=== PATIENT | male | born 1950 | race Hispanic/Latino ===

== ENCOUNTER 2017-07-28 13:12 | Emergency (ER) | payer OTHER ==
[2017-07-28 13:26] VITALS: RESP 20; TEMP 98.6
[2017-07-28 13:52] VITALS: BMI 29.6
[2017-07-28] MEDS ORDERED: Lactated Ringer's 1,000 ML IV STA (14:15)
[2017-07-28 14:33] LABS: BASO % 0.2 % (0.0-2.0); EOS # 0.1 K/uL (0.0-0.7); EOS % 0.5 % (0.0-4.0); HEMOGLOBIN 15.4 g/dL (12.0-18.0); LYMPH # 3.1 K/uL (1.0-4.3); LYMPH % 32.5 % (20.0-40.0); MEAN CELL VOLUME 98.1 fL (80.0-94.0); MEAN CORPUSCULAR HEMOGLOBIN 34.4 pg (27.0-31.0); MEAN CORPUSCULAR HGB CONC 35.1 g/dL (33.0-37.0); MEAN PLATELET VOLUME 8.6 fL (7.2-11.7); MONO # 0.7 K/uL (0.0-0.8); MONO % 6.9 % (0.0-10.0); NEUT # 5.8 K/uL (1.8-7.0); NEUT % 59.9 % (50.0-75.0); RBC 4.47 Mil/uL (4.40-5.90); WHITE BLOOD COUNT 9.7 K/uL (4.8-10.8)
[2017-07-28 15:00] LABS: ALB/GLOB RATIO 1.1 (1.0-2.1); ALBUMIN 4.1 g/dL (3.5-5.0); ALT/SGPT 33 U/L (21-72); AST/SGOT 65 U/L (17-59); BLOOD UREA NITROGEN 17 mg/dL (9-20); CALCIUM 8.1 mg/dl (8.6-10.4); GFR AFRICAN-AMERICAN > 60; GFR NON-AFRICAN AMERICAN > 60
[2017-07-28 15:15] LABS: SQUAMOUS EPITHIAL 1 /hpf (0-5); URINE BILIRUBIN NEGATIVE (NEGATIVE); URINE BLOOD NEGATIVE (NEGATIVE); URINE CLARITY Clear (Clear); URINE COLOR Yellow (YELLOW); URINE GLUCOSE (UA) NORMAL (Normal); URINE LEUKOCYTE ESTERASE NEG Leu/uL (Negative); URINE NITRATE NEGATIVE (NEGATIVE); URINE PROTEIN NEGATIVE (NEGATIVE); URINE UROBILINOGEN NORMAL mg/dL (0.2-1.0)
[2017-07-28 15:26] LABS: BARBITURATES, UR NEGATIVE (NEGATIVE); OPIATES, UR NEGATIVE (NEGATIVE); PHENCYCLIDINE, UR NEGATIVE (NEGATIVE)
--- NOTE | 2017-07-28 16:04 | C.PDOC ---
History Of Present Illness Patient is a 66 y/o male who presents to the ED BIB EMS for alcohol abuse. Patient reports drinking alcohol and taking Xanax daily, admitting to both today. Patient notes being "hooked" on Xanax for many years. Denies any physical complaints. Chief Complaint (Nursing): Substance Abuse History Per: Patient History/Exam Limitations: no limitations Modifying Factor(s): Alcohol Recent travel outside of the [place]: No Past Medical History Reviewed: Historical Data, Nursing Documentation, Vital Signs Vital Signs: Last Vital Signs Temp 98.6 F 07/28/17 16:37 Pulse 74 07/28/17 16:37 Resp 20 07/28/17 16:37 BP 115/64 07/28/17 16:37 Pulse Ox 98 07/28/17 16:37 - Medical History PMH: HTN Surgical History: No Surg Hx Family History: States: No Known Family Hx - Social History Hx Alcohol Use: Yes Hx Substance Use: Yes - Immunization History Hx Tetanus Toxoid Vaccination: No Hx Influenza Vaccination: No Hx Pneumococcal Vaccination: Yes Review Of Systems Neurological: Positive for: Other ([place] intoxicated) Psych: Negative for: Suicidal ideation Physical Exam - Physical Exam Appears: Well, Non-toxic, No Acute Distress Skin: Normal Color, Warm, Dry Head: Atraumatic, Normacephalic Oral Mucosa: Moist Chest: Symmetrical Cardiovascular: Rhythm Regular, No Murmur Respiratory: Normal Breath Sounds, No Rales, No Rhonchi, No Wheezing Gastrointestinal/Abdominal: Soft, No Tenderness Neurological/Psych: Oriented x3, Normal Speech, Normal Cognition ED Course And Treatment - Laboratory Results Result Diagrams: 07/28/17 14:29 07/28/17 14:29 O2 Sat by Pulse Oximetry: 93 Progress Note: Drug screen ordered. IV fluids administered. Disposition - Disposition Referrals: Marilee Chairez MD [Staff Provider] - Disposition: HOME/ ROUTINE Disposition Time: 15:10 Condition: GOOD Additional Instructions: Thank you for letting us take care of you today. The emergency medical care you received today was directed at your acute symptoms. If you were prescribed any medication, please fill it and take as directed. It may take several days for your symptoms to resolve. Return to the Emergency Department if your symptoms worsen, do not improve, or if you have any other problems. Please contact your doctor or call one of the physicians/clinics you have been referred to that are listed on the Patient Visit Information form that is included in your discharge packet. Bring any paperwork you were given at discharge with you along with any medications you are taking to your follow up visit. Our treatment cannot replace ongoing medical care by a primary care provider (PCP) outside of the emergency department. Thank you for allowing the [facility] team to be part of your care today. Follow up with Dr. Chairez on Sunday for follow up and further management. Instructions: Benzodiazepine Abuse (ED) Forms: [employer] (Italian) - Clinical Impression Clinical Impression: Drug abuse - Scribe Statement The provider has reviewed the documentation as recorded by the Scribe Mercy Brian All medical record entries made by the Scribe were at my direction and personally dictated by me. I have reviewed the chart and agree that the record accurately reflects my personal performance of the history, physical exam, medical decision making, and the department course for this patient. I have also personally directed, reviewed, and agree with the discharge instructions and disposition.
[2017-07-28 16:06] LABS: BENZODIAZEPINES, UR POSITIVE (NEGATIVE)
[2017-07-28] MEDS ORDERED: Potassium Chloride 20 mEq ER Tab PO SCH (16:30)
[2017-07-28] MEDS ORDERED: Potassium Chloride 20 mEq ER Tab PO ONE (16:35)
[2017-07-28 16:37] VITALS: BP 115/64; PULSE 74
[2017-07-28 18:34] VITALS: O2SAT 93
== END 2017-07-28 16:52 | disposition home or self-care (01) ==
LOC: C.ER 13:12
DX: F19.10 Other psychoactive substance abuse, uncomplicated (principal); I10 Essential (primary) hypertension
CPT/HCPCS: 80053; 80320; 80324; 80345; 80346; 80349; 80353; 80358; 80361; 81001; 82948; 83992; 85025; 99285; J7120

== ENCOUNTER 2017-08-08 20:06 | Inpatient (IN) | payer OTHER, MEDICARE ==
[2017-08-08 20:07] VITALS: BMI 29.6
--- NOTE | 2017-08-08 21:40 | C.PDOC ---
History Of Present Illness 66 year old male accompanied by his friend presents to the ED sent by Dr. Chairez for admission for depression and substance abuse. As per Patient's friend he has not been taking care of himself and has been abusing Xanax and alcohol, patient states he has not been eating, not taking care of his medical issues. Patient denies SI/HI, hallucinations, nausea, vomit, diarrhea, fever, chills, weakness, numbness. Time Seen by Provider: 08/08/17 20:58 Chief Complaint (Nursing): Psychiatric Evaluation History Per: Patient, Other (Friend) History/Exam Limitations: no limitations Onset/Duration Of Symptoms: Days Current Symptoms Are (Timing): Still Present Suicide/Self Injury Attempted (Context): None Modifying Factor(s): Alcohol, Other (Xanax) Associated Symptoms: Depression. denies: Suicidal Thoughts, Suicidal Plan Recent travel outside of the [place]: No Additional History Per: Patient, Friend Past Medical History Reviewed: Historical Data, Nursing Documentation, Vital Signs Vital Signs: Last Vital Signs Temp 99.8 F H 08/08/17 20:19 Pulse 108 H 08/08/17 20:19 Resp 22 08/08/17 20:19 BP 148/91 H 08/08/17 20:19 Pulse Ox 96 08/08/17 21:42 - Medical History PMH: HTN Surgical History: No Surg Hx Family History: States: Unknown Family Hx - Social History Hx Alcohol Use: Yes Hx Substance Use: Yes - Immunization History Hx Tetanus Toxoid Vaccination: No Hx Influenza Vaccination: No Hx Pneumococcal Vaccination: Yes Review Of Systems Constitutional: Negative for: Fever, Chills Cardiovascular: Negative for: Chest Pain Respiratory: Negative for: Cough, Shortness of Breath Gastrointestinal: Negative for: Nausea, Vomiting, Abdominal Pain Genitourinary: Negative for: Dysuria, Hematuria Skin: Negative for: Rash Neurological: Negative for: Weakness, Numbness, Headache, Dizziness Psych: Negative for: Depression, Suicidal ideation Physical Exam - Physical Exam Appears: Non-toxic, No Acute Distress Skin: Normal Color, Warm, Dry Head: Atraumatic, Normacephalic Nose: No Discharge, No Deformity Oral Mucosa: Moist Neck: Normal ROM, Supple Chest: Symmetrical Cardiovascular: Rhythm Regular, No Murmur Respiratory: Normal Breath Sounds, No Rales, No Rhonchi, No Wheezing Gastrointestinal/Abdominal: Soft, No Tenderness, No Guarding, No Rebound Extremity: Normal ROM, No Pedal Edema, No Calf Tenderness, No Deformity, No Swelling Neurological/Psych: Oriented x3, Normal Speech, Normal Cognition Gait: Steady ED Course And Treatment - Laboratory Results Result Diagrams: 08/08/17 21:51 08/08/17 21:51 Lab Interpretation: No Acute Changes O2 Sat by Pulse Oximetry: 96 (On RA) Pulse Ox Interpretation: Normal Progress Note: Patient is medically cleared for admission for major depressive disorder and benzodiazepine abuse. Medical Decision Making Medical Decision Making: Plan: * UA * Labs Disposition - Disposition Disposition: HOSPITALIZED Disposition Time: 22:47 Condition: STABLE - POA Present On Arrival: None - Clinical Impression Clinical Impression: Moderate major depression, single episode, Benzodiazepine abuse - Scribe Statement The provider has reviewed the documentation as recorded by the Scribe Beto Stevenson All medical record entries made by the Scribe were at my direction and personally dictated by me. I have reviewed the chart and agree that the record accurately reflects my personal performance of the history, physical exam, medical decision making, and the department course for this patient. I have also personally directed, reviewed, and agree with the discharge instructions and disposition.
[2017-08-08 21:54] LABS: BASO % 0.1 % (0.0-2.0); EOS % 0.4 % (0.0-4.0); HEMOGLOBIN 13.7 g/dL (12.0-18.0); LYMPH # 2.3 K/uL (1.0-4.3); MEAN CORPUSCULAR HEMOGLOBIN 33.8 pg (27.0-31.0); MEAN CORPUSCULAR HGB CONC 34.5 g/dL (33.0-37.0); MEAN PLATELET VOLUME 7.8 fL (7.2-11.7); MONO # 0.8 K/uL (0.0-0.8); MONO % 9.9 % (0.0-10.0); NEUT # 5.3 K/uL (1.8-7.0); NEUT % 62.6 % (50.0-75.0); RBC 4.03 Mil/uL (4.40-5.90); RED CELL DISTRIBUTION WIDTH 12.7 % (11.5-14.5); WHITE BLOOD COUNT 8.5 K/uL (4.8-10.8)
[2017-08-08 22:13] LABS: ALB/GLOB RATIO 1.5 (1.0-2.1); ALT/SGPT 30 U/L (21-72); AST/SGOT 26 U/L (17-59); BLOOD UREA NITROGEN 13 mg/dL (9-20); CALCIUM 8.5 mg/dl (8.6-10.4); GFR AFRICAN-AMERICAN > 60; GFR NON-AFRICAN AMERICAN > 60
[2017-08-08 22:20] LABS: SQUAMOUS EPITHIAL < 1 /hpf (0-5); URINE BILIRUBIN NEGATIVE (NEGATIVE); URINE BLOOD NEGATIVE (NEGATIVE); URINE CLARITY Clear (Clear); URINE COLOR Yellow (YELLOW); URINE GLUCOSE (UA) NORMAL (Normal); URINE LEUKOCYTE ESTERASE NEG Leu/uL (Negative); URINE NITRATE NEGATIVE (NEGATIVE); URINE PROTEIN NEGATIVE (NEGATIVE); URINE UROBILINOGEN NORMAL mg/dL (0.2-1.0)
[2017-08-08 22:34] LABS: BARBITURATES, UR NEGATIVE (NEGATIVE); OPIATES, UR NEGATIVE (NEGATIVE); PHENCYCLIDINE, UR NEGATIVE (NEGATIVE)
[2017-08-08 22:43] LABS: BENZODIAZEPINES, UR POSITIVE (NEGATIVE)
[2017-08-08] MEDS ORDERED: Aluminum Hydroxide/Magnesium Hydroxide Susp (30 mL) PO PRN (22:51)
[2017-08-09 00:03] VITALS: O2SAT 95
[2017-08-09] MEDS ORDERED: Pneumococcal 23-Valent Vaccine IM ONE (02:13)
--- NOTE | 2017-08-09 02:19 | PCM.BM ---
Treatment assets and liabiliti Patient Assests: adapts well, cooperative, self-reliant, ADL independent, good support system, negotiates basic needs Patient Liabilities: dietary restrictions, medical problems - Milieu Protocol Maintain good personal hygiene: daily Encourage regular showers, daily Remind patient to perform daily oral care, daily Assist patient to perform ADL's Maintain personal safety: daily Educate patient to report safety concerns to staff, daily Monitor environment for contraband/sharps Medication safety: Monitor for expected outcome, potential side effects: daily
--- NOTE | 2017-08-09 03:05 | PCM.BM ---
<Justin Santos - Last Filed: 08/09/17 03:03> Treatment Plan Problems - Problems identified on initial assessmt Depression Date Initiated: 08/09/17 Time Initiated: 00:15 Assessment reference: NA Status: Active Treatment assets and liabiliti Patient Assests: adapts well, cooperative, self-reliant, ADL independent, good support system, negotiates basic needs Patient Liabilities: financial problems, substance abuse, medical problems, legal issue - Milieu Protocol Maintain good personal hygiene: daily Encourage regular showers, daily Remind patient to perform daily oral care, daily Assist patient to perform ADL's Maintain personal safety: every shift Educate patient to report safety concerns to staff, every shift Monitor environment for contraband/sharps Medication safety: Monitor for expected outcome, potential side effects: every shift, Assess barriers to learning: every shift, Assess readiness for medication education: every shift <Marilee Chairez - Last Filed: 08/10/17 11:10> - Diagnosis (1) Moderate major depression, single episode Status: Acute Interventions: 08/10/17 11:10 * Assess/adjust medications daily and /or as needed * See patient on an individual basis 7x/week to assess symptoms of depression * Monitor for side effects & effectiveness of medications * (2) Benzodiazepine abuse Status: Acute Interventions: 08/10/17 11:11 * Assess 7x/week regarding severity of withdrawal * Educate regarding risks, benefits, side effects and alternatives of medications * Use Motivational Interviewing for abstinence * Use CBT for relapse prevention * Medication management for withdrawal symptoms * Encourage medication assisted treatment * <Poly Yang - Last Filed: 08/10/17 11:38> Family Contact Family involvement: Family/SO is involved - Goals for Treatment Patient goals for treatment: "I need help." Discharge/Continuing Care - Education Needs Education Needs: Patient Medication, Patient Coping Skills - Discharge Discharge Criteria: Tolerates medication w/o severe side effects, Reduction of target symptoms Discharge to:: Home - Treatment Team Participation Discussed with Family/SO: No Was Patient/Family/SO present at Treatment Team Meeting: Yes
[2017-08-09] MEDS: Multiple Vitamins Tab PO SCH (10:06)
--- NOTE | 2017-08-09 10:23 | PCM.PSYCH ---
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 Patient reports a long history of depression. He reports that he was given Xanax for depression by his psychiatrist. However since past 2 weeks he is abusing increasing amount of Xanax. On he consumed "only 1/2 gallon of rum'. He was taken to the hospital but that he was discharged back to home As per the ED notes, patient reports that, 'he took 12 Xanax 0.5mg yesterday because he was "feeling a little extra sad." When asked if this was a suicide attempt, pt said "no I didn't want to hurt myself, but honestly, if I took one too many pills and I didn't wake up then what the hell, oh well." Pt denies previous suicide attempts in the past. Pt admitted to one psychiatric admission "over 20 years ago in [place], [place] when I was drinking heavily." Pt stated he has been struggling with addiction since his 20's. Pt stated that he used 4- 5 tablets of Xanax 0.5 today by mouth, last use around 4pm. Pt denied active w/ d symptoms, but experiences tremors, and "leg weakness" when w/d. Pt presented as unkempt and older than stated age. Pt behavior's was tense, apathetic, and speech was mumbled. Pt has a history of benzodiazepine related seizures, last episodes were on 07/25/17 when he was brought to [facility] ER and on 07/28/17 when he was brought to [facility] ER. Pt appears to lack insight into the severity of his addiction, and grossly minimizing his symptoms. Pt states he has been to detox "many time, the first time at 24 for alcohol and the last time over 10 years ago." Although pt was engaging throughout the evaluation, he remained guarded and evasive about details of his substance abuse and psychiatric history. Pt was unable to identify the catalyst of his use worsening since 11/2016. Pt has not been eating regularly, and has " no appetite." Pt states he has lost over 40lbs in under 3 years. Pt is not bathing or grooming himself, and his , Akshat has been assisting him in his ADL's. Patient still reports feelings of hopelessness and helplessness. He reports poor sleep and poor appetite. He reports he has no interest in his profession and his shop. He is minimizing his days at work and stays home everyday. However denies any auditory or visual hallucinations or any persecutory delusions. Past medical history HTN, DM Current Medications: Active Medications Generic Name Dose Route Start Last Admin Trade Name Freq PRN Reason Stop Dose Admin Acetaminophen 650 mg 08/08/17 22:49 Tylenol 325mg Tab PO Q6 PRN Fever >100.4 F Al Hydrox/Mg Hydrox/Simethicone 30 ml 08/08/17 22:51 Maalox 30 Ml PO TID PRN Indigestion / Heartburn Clonidine HCl 0.1 mg 08/08/17 22:49 Catapres PO Q4H PRN Symptoms of alcohol withdrawl Folic Acid 1 mg 08/09/17 10:00 08/09/17 10:06 Folic Acid PO 1 mg DAILY FERN Administration Loperamide HCl 2 mg 08/08/17 22:51 Imodium PO Q8 PRN Diarrhea Lorazepam 1 mg 08/08/17 22:49 Ativan PO Q4H PRN Symptoms of alcohol withdrawl Lorazepam 2 mg 08/08/17 23:00 08/09/17 08:25 Ativan PO 08/13/17 22:59 2 mg Q4 FERN Administration Taper Multivitamins 1 tab 08/09/17 10:00 08/09/17 10:06 Hexavitamin PO 1 tab DAILY FERN Administration Ondansetron HCl 4 mg 08/08/17 22:51 Zofran Tab PO Q8 PRN Nausea/Vomiting Sertraline HCl 50 mg 08/09/17 10:00 08/09/17 10:06 Zoloft PO 50 mg DAILY FERN Administration Thiamine HCl 100 mg 08/09/17 10:00 08/09/17 10:06 Vitamin B1 Tab PO 100 mg DAILY FERN Administration Trazodone HCl 50 mg 08/08/17 22:49 08/09/17 01:19 Desyrel PO 50 mg HS PRN Administration Insomnia Past Psychiatric History - Past Psychiatric History Previous Treatment History: Inpatient Pertinent Medical Hx (Current Medical&Sleep Prob, Allergies): Allergies Allergy/AdvReac Type Severity Reaction Status Date / Time No Known Allergies Allergy Verified 07/28/17 13:31 Alprazolam [Xanax] 0.5 mg PO TID 07/28/17 Paroxetine HCl [Paxil] 10 mg PO DAILY 07/28/17 Paroxetine HCl [Paxil] 40 mg PO DAILY 07/28/17 Valsartan [Diovan] 0 mg PO DAILY 07/28/17 Review of Systems - Review of Systems All systems: reviewed and no additional remarkable complaints except - Psychiatric Psychiatric: Anxiety, Behavioral Changes, Hopelessness, Irritability, Suicidal Ideation Mental Status Examination - Personal Presentation Personal Presentation: Looks stated age - Affect Affect: Constricted, Depressed - Motor Activity Motor Activity: Calm - Reliability in Providing Information Reliability in Providing Information: Poor, due to altered mood - Speech Speech: Organized - Mood Mood: Depressed, Anxious - Formal Thought Process Formal Thought Process: No Impairment - Obsessions/Compulsions Obsessions: No Compulsions: No - Cognitive Functions Orientation: Person, Place, Situation, Time Sensorium: Alert Attention/Concentration: Attentive Abstract Thinking: [place] Estimate of Intelligence: Below average Judgement: Imparied, as evidence by: Poor judgement, Imparied, as evidence by: Lack of insight into illness - Risk Risk: Suicidal, Diminished functioning - Strength & Assets Inventory Strength & Assets Inventory: Family support DSM 5 DX - DSM 5 DSM 5 Diagnosis: 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 uncomplicated - Recommended/Plan of Treatment Treatment Recommendations and Plan of Treatment: Major depressive disorder recurrent severe without psychotic features CBT Psychoeducation Supportive therapy, individual therapy Start Zoloft 50 mg PO daily Start Trazodone 50 mg PO Q HS Sedative/hypnotic use disorder severe CBT Psychoeducation Supportive therapy, individual therapy Use [place] for abstinence Sedative/hypnotic withdrawal uncomplicated CBT Psychoeducation Supportive therapy, individual therapy Librium when necessary Start Ativan taper Start folic acid/thiamine/multivitamin DM Continue prescribed medications Monitor for signs and symptoms Hypertension Continue prescribed medications Monitor for signs and symptoms - Smoking Cessation Smoking Cessation Initiated: No
[2017-08-09] MEDS: Metoprolol Succinate 100 mg XL Tab PO SCH (17:26)
[2017-08-10] MEDS: Metoprolol Succinate 100 mg XL Tab PO SCH (10:00)
[2017-08-10] MEDS: Multiple Vitamins Tab PO SCH (10:01)
--- NOTE | 2017-08-10 11:10 | PCM.PYCHPN ---
Psychiatric Progress Note - Psychiatric Progress Note Patient seen today, length of contact: 15 min Patient Chief Complaint: I'm feeling very depressed.' Problems Identified/Issues Discussed: Patient seen and evaluated, chart reviewed and discussed with the nurse. He reports depressed mood and feelings of hopelessness and helplessness. He remains isolated, confined and withdrawn. Patient reports withdrawal symptoms including nausea, headaches, anxiety and sweating. He reports shaking and appears somewhat internally preoccupied, and confused, however, he denies any AVH. Patient is compliant with medications and denies any side effects. Symptoms are improving but need more time to stabilize. Support and psychoeducation given. Medication Change: Yes (Ativan taper, start zoloft) Medical Record Reviewed: Yes Mental Status Examination - Cognitive Function Orientation: Person, Place, Situation, Time Memory: Intact Attention: Poor Concentration: Poor Association: Loose Fund of Knowledge: Poor - Mood Mood: Depressed, Anxious - Affect Affect: Constricted, Depressed - Formal Thought Process Formal Thought Process: Loosening of associations - Suicidal Ideation Suicidal Ideation: No - Homicidal Ideation Homicidal Ideation: No Goal/Treatment Plan - Goal/Treatment Plan Need for Continued Stay: Severe depression anxiety, Severe functional impairment Progress Toward Problem(s) and Goals/Treatment Plan: Major depressive disorder recurrent severe without psychotic features CBT Psychoeducation Supportive therapy, individual therapy Zoloft 50 mg PO daily Trazodone 50 mg PO Q HS Sedative/hypnotic use disorder severe CBT Psychoeducation Supportive therapy, individual therapy Use [place] for abstinence Sedative/hypnotic withdrawal uncomplicated CBT Psychoeducation Supportive therapy, individual therapy Ativan when necessary Ativan taper Folic acid/thiamine/multivitamin DM Continue prescribed medications Monitor for signs and symptoms Hypertension Continue prescribed medications Monitor for signs and symptoms - Smoking Cessation Smoking Cessation Initiated: No
[2017-08-11] MEDS: Multiple Vitamins Tab PO SCH (09:45)
[2017-08-11] MEDS: Metoprolol Succinate 100 mg XL Tab PO SCH (09:46)
--- NOTE | 2017-08-11 11:47 | PCM.PYCHPN ---
Psychiatric Progress Note - Psychiatric Progress Note Patient seen today, length of contact: 16 min Patient Chief Complaint: I'm feeling very depressed.' Problems Identified/Issues Discussed: Patient seen and evaluated, chart reviewed and discussed with the nurse. He reports depressed mood and feelings of hopelessness and helplessness. He remains isolated, confined and withdrawn. Patient reports withdrawal symptoms including nausea, headaches, anxiety and sweating. He reports shaking and appears somewhat internally preoccupied, and confused, however, he denies any AVH. Patient is compliant with medications and denies any side effects. Symptoms are improving but need more time to stabilize. Support and psychoeducation given. Medication Change: Yes (Ativan taper) Medical Record Reviewed: Yes Mental Status Examination - Cognitive Function Orientation: Person, Place, Situation, Time - Mood Mood: Depressed, Anxious - Affect Affect: Constricted, Depressed - Formal Thought Process Formal Thought Process: No Impairment - Homicidal Ideation Homicidal Ideation: No Goal/Treatment Plan - Goal/Treatment Plan Need for Continued Stay: Severe depression anxiety, Severe functional impairment Progress Toward Problem(s) and Goals/Treatment Plan: Major depressive disorder recurrent severe without psychotic features CBT Psychoeducation Supportive therapy, individual therapy Zoloft 100 mg PO daily Trazodone 100 mg PO Q HS Sedative/hypnotic use disorder severe CBT Psychoeducation Supportive therapy, individual therapy Use [place] for abstinence Sedative/hypnotic withdrawal uncomplicated CBT Psychoeducation Supportive therapy, individual therapy Ativan when necessary Ativan taper Folic acid/thiamine/multivitamin DM Continue prescribed medications Monitor for signs and symptoms Hypertension Continue prescribed medications Monitor for signs and symptoms - Smoking Cessation Smoking Cessation Initiated: No
[2017-08-12] MEDS: Metoprolol Succinate 100 mg XL Tab PO SCH (10:02)
[2017-08-12] MEDS: Multiple Vitamins Tab PO SCH (10:02)
--- NOTE | 2017-08-12 13:39 | PCM.PYCHPN ---
Psychiatric Progress Note - Psychiatric Progress Note Patient seen today, length of contact: 15 min Patient Chief Complaint: I'm feeling very depressed.' Problems Identified/Issues Discussed: Patient seen and evaluated, chart reviewed and discussed with the nurse. He reports depressed mood and feelings of hopelessness and helplessness. He remains isolated, confined and withdrawn. Patient reports withdrawal symptoms including nausea, headaches, anxiety and sweating. He reports shaking and appears somewhat internally preoccupied, and confused, however, he denies any AVH. Patient is compliant with medications and denies any side effects. Symptoms are improving but need more time to stabilize. Support and psychoeducation given. Medication Change: Yes (Start Seroquel 50 mg) Medical Record Reviewed: Yes Mental Status Examination - Cognitive Function Orientation: Person, Place, Situation, Time Memory: Intact Attention: WNL Concentration: Poor Association: Loose Fund of Knowledge: WNL - Mood Mood: Depressed, Anxious - Affect Affect: Constricted, Depressed - Speech Speech: Soft - Formal Thought Process Formal Thought Process: Loosening of associations - Suicidal Ideation Suicidal Ideation: No - Homicidal Ideation Homicidal Ideation: No Goal/Treatment Plan - Goal/Treatment Plan Need for Continued Stay: Severe depression anxiety, Severe functional impairment Progress Toward Problem(s) and Goals/Treatment Plan: Major depressive disorder recurrent severe without psychotic features CBT Psychoeducation Supportive therapy, individual therapy Zoloft 100 mg PO daily Trazodone 100 mg PO Q HS Seroquel 50 mg PO QHS Neurontin 100 mg PO TID Sedative/hypnotic use disorder severe CBT Psychoeducation Supportive therapy, individual therapy Use [place] for abstinence Sedative/hypnotic withdrawal uncomplicated CBT Psychoeducation Supportive therapy, individual therapy Ativna when necessary Ativan taper Folic acid/thiamine/multivitamin DM Continue prescribed medications Monitor for signs and symptoms Hypertension Continue prescribed medications Monitor for signs and symptoms - Smoking Cessation Smoking Cessation Initiated: No
[2017-08-13] MEDS: Metoprolol Succinate 100 mg XL Tab PO SCH (10:22)
--- NOTE | 2017-08-13 10:22 | PCM.PYCHPN ---
Psychiatric Progress Note - Psychiatric Progress Note Patient seen today, length of contact: 15 min Patient Chief Complaint: I'm feeling little better Problems Identified/Issues Discussed: Patient seen and evaluated, chart reviewed and discussed with the nurse. Patient reports some improvement in his mood and reports some improvement in the feelings of hopelessness. He also reports improvement in his sleep however he remains very anxious and irritable. As per the staff is still pacing back and forth in the hallways. He is asking for more Ativan for anxiety. He remains isolated, confined and withdrawn. Patient reports improvement in the withdrawal symptoms but still reports headaches, and anxiety. He reports improvement in the shakes. Patient still appears somewhat internally preoccupied , and confused, however, he denies any AVH. Patient is compliant with medications and denies any side effects. Symptoms are improving but need more time to stabilize. Support and psychoeducation given. Medication Change: Yes ( Seroquel 100 mg) Medical Record Reviewed: Yes Mental Status Examination - Cognitive Function Orientation: Person, Place, Situation, Time Memory: Intact Attention: WNL Concentration: Poor Association: Loose Fund of Knowledge: WNL - Mood Mood: Depressed, Anxious - Affect Affect: Constricted, Depressed - Speech Speech: Soft - Formal Thought Process Formal Thought Process: Loosening of associations - Suicidal Ideation Suicidal Ideation: No - Homicidal Ideation Homicidal Ideation: No Goal/Treatment Plan - Goal/Treatment Plan Need for Continued Stay: Severe depression anxiety, Severe functional impairment Progress Toward Problem(s) and Goals/Treatment Plan: Major depressive disorder recurrent severe without psychotic features CBT Psychoeducation Supportive therapy, individual therapy Zoloft 200 mg PO daily Trazodone 100 mg PO Q HS Seroquel 100 mg PO QHS Neurontin 100 mg PO TID Sedative/hypnotic use disorder severe CBT Psychoeducation Supportive therapy, individual therapy Use MN for abstinence Sedative/hypnotic withdrawal uncomplicated CBT Psychoeducation Supportive therapy, individual therapy Ativan when necessary Ativan taper Folic acid/thiamine/multivitamin DM Continue prescribed medications Monitor for signs and symptoms Hypertension Continue prescribed medications Monitor for signs and symptoms - Smoking Cessation Smoking Cessation Initiated: No
[2017-08-13] MEDS: Multiple Vitamins Tab PO SCH (10:23)
[2017-08-14] MEDS: Multiple Vitamins Tab PO SCH (09:47)
[2017-08-14] MEDS: Metoprolol Succinate 100 mg XL Tab PO SCH (09:48)
--- NOTE | 2017-08-14 10:13 | PCM.PYCHPN ---
Psychiatric Progress Note - Psychiatric Progress Note Patient seen today, length of contact: 15 min Patient Chief Complaint: I'm feeling little better Problems Identified/Issues Discussed: Patient seen and evaluated, chart reviewed and discussed with the nurse. As per the staff is still pacing back and forth in the hallways. He is asking for more Ativan for anxiety. He remains isolated, confined and withdrawn. Patient reports some improvement in his mood and reports some improvement in the feelings of hopelessness. He also reports improvement in his sleep however he remains anxious. Patient reports improvement in the withdrawal symptoms. Patient still appears somewhat internally preoccupied, and confused, however, he denies any AVH. Patient is compliant with medications and denies any side effects. Symptoms are improving but need more time to stabilize. Support and psychoeducation given. Medication Change: Yes (increase neurontin, decrease zoloft) Medical Record Reviewed: Yes Mental Status Examination - Cognitive Function Orientation: Person, Place, Situation, Time Memory: Intact Attention: WNL Concentration: Poor Association: WNL Fund of Knowledge: WNL - Mood Mood: Depressed, Anxious - Affect Affect: Constricted, Depressed - Speech Speech: Soft - Formal Thought Process Formal Thought Process: No Impairment - Suicidal Ideation Suicidal Ideation: No - Homicidal Ideation Homicidal Ideation: No Goal/Treatment Plan - Goal/Treatment Plan Need for Continued Stay: Severe depression anxiety, Severe functional impairment , Other Progress Toward Problem(s) and Goals/Treatment Plan: Major depressive disorder recurrent severe without psychotic features CBT Psychoeducation Supportive therapy, individual therapy Zoloft 100 mg PO daily Trazodone 100 mg PO Q HS Seroquel 100 mg PO QHS Neurontin 300 mg PO TID Sedative/hypnotic use disorder severe CBT Psychoeducation Supportive therapy, individual therapy Use LA for abstinence Sedative/hypnotic withdrawal uncomplicated CBT Psychoeducation Supportive therapy, individual therapy Ativan when necessary Ativan taper Folic acid/thiamine/multivitamin DM Continue prescribed medications Monitor for signs and symptoms Hypertension Continue prescribed medications Monitor for signs and symptoms - Smoking Cessation Smoking Cessation Initiated: No
[2017-08-15 06:48] VITALS: BP 156/94; PULSE 72; RESP 18; TEMP 98.1
--- NOTE | 2017-08-15 09:57 | PCM.PYCHDC ---
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 Patient reports a long history of depression. He reports that he was given Xanax for depression by his psychiatrist. However since past 2 weeks he is abusing increasing amount of Xanax. On he consumed "only 1/2 gallon of rum'. He was taken to the hospital but that he was discharged back to home As per the ED notes, patient reports that, 'he took 12 Xanax 0.5mg yesterday because he was "feeling a little extra sad." When asked if this was a suicide attempt, pt said "no I didn't want to hurt myself, but honestly, if I took one too many pills and I didn't wake up then what the hell, oh well." Pt denies previous suicide attempts in the past. Pt admitted to one psychiatric admission "over 20 years ago in [place], [place] when I was drinking heavily." Pt stated he has been struggling with addiction since his 20's. Pt stated that he used 4- 5 tablets of Xanax 0.5 today by mouth, last use around 4pm. Pt denied active w/ d symptoms, but experiences tremors, and "leg weakness" when w/d. Pt presented as unkempt and older than stated age. Pt behavior's was tense, apathetic, and speech was mumbled. Pt has a history of benzodiazepine related seizures, last episodes were on 07/25/17 when he was brought to [facility] ER and on 07/28/17 when he was brought to [facility] ER. Pt appears to lack insight into the severity of his addiction, and grossly minimizing his symptoms. Pt states he has been to detox "many time, the first time at 24 for alcohol and the last time over 10 years ago." Although pt was engaging throughout the evaluation, he remained guarded and evasive about details of his substance abuse and psychiatric history. Pt was unable to identify the catalyst of his use worsening since 11/2016. Pt has not been eating regularly, and has " no appetite." Pt states he has lost over 40lbs in under 3 years. Pt is not bathing or grooming himself, and his , Akshat has been assisting him in his ADL's. Patient still reports feelings of hopelessness and helplessness. He reports poor sleep and poor appetite. He reports he has no interest in his profession and his shop. He is minimizing his days at work and stays home everyday. However denies any auditory or visual hallucinations or any persecutory delusions. Laboratory Data: Abnormal Lab Results 08/14/17 16:24 POC Glucose (mg/dL) 74 Consultations:: List each consultation separately and include: 1. Reason for request. 2. Findings. 3. Follow-up Summary of Hospital Course include:: 1. Description of specific treatment plan utilized for patients during their course of treatmen. 2. Summarize the time- course for resolution of acute symptoms and/or regressed behaviors. 3. Describe issues identified and worked on during hospitalization. 4. Describe medication utilized. 5. Describe medical problems identified and treated. 6. 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 Patient reports a long history of depression. He reports that he was given Xanax for depression by his psychiatrist. However since past 2 weeks he is abusing increasing amount of Xanax. On he consumed "only 1/2 gallon of rum'. He was taken to the hospital but that he was discharged back to home As per the ED notes, patient reports that, 'he took 12 Xanax 0.5mg yesterday because he was "feeling a little extra sad." When asked if this was a suicide attempt, pt said "no I didn't want to hurt myself, but honestly, if I took one too many pills and I didn't wake up then what the hell, oh well." Pt denies previous suicide attempts in the past. Pt admitted to one psychiatric admission "over 20 years ago in [place], [place] when I was drinking heavily." Pt stated he has been struggling with addiction since his 20's. Pt stated that he used 4- 5 tablets of Xanax 0.5 today by mouth, last use around 4pm. Pt denied active w/ d symptoms, but experiences tremors, and "leg weakness" when w/d. Pt presented as unkempt and older than stated age. Pt behavior's was tense, apathetic, and speech was mumbled. Pt has a history of benzodiazepine related seizures, last episodes were on 07/25/17 when he was brought to [facility] ER and on 07/28/17 when he was brought to [facility] ER. Pt appears to lack insight into the severity of his addiction, and grossly minimizing his symptoms. Pt states he has been to detox "many time, the first time at 24 for alcohol and the last time over 10 years ago." Although pt was engaging throughout the evaluation, he remained guarded and evasive about details of his substance abuse and psychiatric history. Pt was unable to identify the catalyst of his use worsening since 11/2016. Pt has not been eating regularly, and has " no appetite." Pt states he has lost over 40lbs in under 3 years. Pt is not bathing or grooming himself, and his , Akshat has been assisting him in his ADL's. Patient still reports feelings of hopelessness and helplessness. He reports poor sleep and poor appetite. He reports he has no interest in his profession and his shop. He is minimizing his days at work and stays home everyday. However denies any auditory or visual hallucinations or any persecutory delusions. 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 uncomplicated Disposition: HOME/ ROUTINE Follow-up Treatment Plan: Major depressive disorder recurrent severe without psychotic features CBT Psychoeducation Supportive therapy, individual therapy Zoloft 100 mg PO daily Trazodone 100 mg PO Q HS Seroquel 100 mg PO QHS Neurontin 300 mg PO TID Sedative/hypnotic use disorder severe CBT Psychoeducation Supportive therapy, individual therapy Use LA for abstinence Sedative/hypnotic withdrawal uncomplicated CBT Psychoeducation Supportive therapy, individual therapy Ativan when necessary Ativan taper Folic acid/thiamine/multivitamin DM Continue prescribed medications Monitor for signs and symptoms Hypertension Continue prescribed medications Monitor for signs and symptoms Prescriptions/Medication Reconciliation: Finasteride [Proscar] 5 mg PO DAILY #30 tab Gabapentin [Neurontin] 300 mg PO TID 14 Days #90 cap glyBURIDE [Micronase] 5 mg PO QAM #30 tab hydroCHLOROthiazide [Hydrodiuril] 25 mg PO DAILY #30 tab metFORMIN [glucOPHAGE] 500 mg PO BID #60 tab Metoprolol Succinate [Toprol XL] 100 mg PO DAILY #30 tab QUEtiapine [Seroquel] 100 mg PO HS #14 tab Sertraline [Zoloft] 100 mg PO DAILY #14 tab Tamsulosin [Flomax] 0.4 mg PO DAILY #30 cap traZODone [Desyrel] 100 mg PO HS PRN #30 tab PRN Reason: Insomnia - Smoking Cessation Smoking Cessation Medication prescribed: No - Antipsychotic Medications Pt discharged on 2 or more routine antipsychotic medications: No
[2017-08-15] MEDS: Metoprolol Succinate 100 mg XL Tab PO SCH (10:22)
[2017-08-15] MEDS: Multiple Vitamins Tab PO SCH (10:22)
== END 2017-08-15 14:30 | disposition home or self-care (01) | DRG 895 ==
LOC: C.ER 20:06 → C.5E 22:48
PROVIDERS: ADMIT Psychiatry & Neurology Psychiatry; ATTEND Psychiatry & Neurology Psychiatry
PROC: HZ2ZZZZ Detoxification Services for Substance Abuse Treatment (ICD-10-PCS; principal; 2017-08-09)
PROC: HZ52ZZZ Individual Psychotherapy for Substance Abuse Treatment, Cognitive-Behavioral (ICD-10-PCS; 2017-08-09)
PROC: HZ59ZZZ Individual Psychotherapy for Substance Abuse Treatment, Supportive (ICD-10-PCS; 2017-08-09)
PROC: HZ56ZZZ Individual Psychotherapy for Substance Abuse Treatment, Psychoeducation (ICD-10-PCS; 2017-08-09)
DX: F13.230 Sedative, hypnotic or anxiolytic dependence with withdrawal, uncomplicated (principal); R45.851 Suicidal ideations; F33.2 Major depressive disorder, recurrent severe without psychotic features; E11.9 Type 2 diabetes mellitus without complications; I10 Essential (primary) hypertension; F41.8 Other specified anxiety disorders

== ENCOUNTER 2018-01-24 13:18 | Inpatient (IN) | payer OTHER, MEDICARE ==
[2018-01-24 13:18] VITALS: BMI 29.6
[2018-01-24 14:36] LABS: BASO % 0.4 % (0.0-2.0); EOS % 0.4 % (0.0-4.0); HEMOGLOBIN 15.3 g/dL (12.0-18.0); LYMPH # 2.1 K/uL (1.0-4.3); LYMPH % 29.9 % (20.0-40.0); MEAN CELL VOLUME 94.7 fL (80.0-94.0); MEAN CORPUSCULAR HEMOGLOBIN 32.8 pg (27.0-31.0); MEAN CORPUSCULAR HGB CONC 34.6 g/dL (33.0-37.0); MEAN PLATELET VOLUME 8.1 fL (7.2-11.7); MONO # 0.5 K/uL (0.0-0.8); MONO % 6.4 % (0.0-10.0); NEUT # 4.5 K/uL (1.8-7.0); NEUT % 62.9 % (50.0-75.0); RBC 4.65 Mil/uL (4.40-5.90); RED CELL DISTRIBUTION WIDTH 12.8 % (11.5-14.5); WHITE BLOOD COUNT 7.1 K/uL (4.8-10.8)
[2018-01-24 14:39] LABS: SQUAMOUS EPITHIAL 3 /hpf (0-5); URINE BACTERIA RARE (<OCC); URINE BILIRUBIN NEGATIVE (NEGATIVE); URINE BLOOD NEGATIVE (NEGATIVE); URINE CLARITY Clear (Clear); URINE COLOR Yellow (YELLOW); URINE GLUCOSE (UA) NORMAL (Normal); URINE LEUKOCYTE ESTERASE NEG Leu/uL (Negative); URINE PROTEIN NEGATIVE (NEGATIVE); URINE UROBILINOGEN NORMAL mg/dL (0.2-1.0)
[2018-01-24 14:48] LABS: ALB/GLOB RATIO 1.6 (1.0-2.1); ALBUMIN 4.5 g/dL (3.5-5.0); ALT/SGPT 47 U/L (21-72); AST/SGOT 36 U/L (17-59); BLOOD UREA NITROGEN 11 mg/dL (9-20); CALCIUM 9.2 mg/dl (8.6-10.4); GFR AFRICAN-AMERICAN > 60; GFR NON-AFRICAN AMERICAN > 60
--- NOTE | 2018-01-24 14:50 | C.PDOC ---
History Of Present Illness 67 year old male, whose PMHx includes Bipolar Disorder (occasionally compliant with medication) and Parkinson's Disease, presents to the ED for a psychiatric evaluation. Patient admits he occasionally feels like hurting himself. Patient admits he drank vanilla extract this morning and states he last took his medication yesterday. Patient is also complaining of chronic body pain. Patient denies suicidal plan, homicidal ideation/plan, recent drug use. Chief Complaint (Nursing): Psychiatric Evaluation History Per: Patient History/Exam Limitations: no limitations Onset/Duration Of Symptoms: Hrs Current Symptoms Are (Timing): Still Present Suicide/Self Injury Attempted (Context): None Associated Symptoms: Suicidal Thoughts. denies: Suicidal Plan Involuntary Hold By: None Recent travel outside of the [place]: No Additional History Per: Patient Past Medical History Reviewed: Historical Data, Nursing Documentation, Vital Signs Vital Signs: Last Vital Signs Temp 99.5 F 01/24/18 16:12 Pulse 76 01/24/18 16:12 Resp 18 01/24/18 18:09 BP 163/88 H 01/24/18 16:12 Pulse Ox 98 01/24/18 21:53 - Medical History PMH: Anxiety (takes xanax), Depression, Diabetes, HTN, Seizures (benzodiazepine related) Denies: Hepatitis, HIV, Chronic Kidney Disease, Sexually Transmitted Disease Surgical History: No Surg Hx - [facility] Procedures DETOXIFICATION SERVICES FOR SUBSTANCE ABUSE TREATMENT (08/08/17) INDIV PSYCHOTHERAPY FOR SUBSTANCE ABUSE TREATMENT, SUPPORT (08/08/17) INDIV PSYCHOTHERAPY FOR SUBSTANCE ABUSE, COGNITIV BEHAVIORAL (08/08/17) INDIV PSYCHOTHERAPY FOR SUBSTANCE ABUSE, PSYCHOEDUCATION (08/08/17) Family History: States: Unknown Family Hx - Social History Hx Alcohol Use: Yes (etoh) Hx Substance Use: Yes - Immunization History Hx Tetanus Toxoid Vaccination: No Hx Influenza Vaccination: No Hx Pneumococcal Vaccination: Yes Review Of Systems Musculoskeletal: Positive for: Other (chronic body pain) Psych: Positive for: Suicidal ideation Physical Exam - Physical Exam Appears: Non-toxic, No Acute Distress Skin: Normal Color, Warm, Dry Head: Atraumatic, Normacephalic Eye(s): bilateral: Normal Inspection Oral Mucosa: Moist Neck: Supple Chest: Symmetrical, No Deformity, No Tenderness Cardiovascular: Rhythm Regular, No Murmur Respiratory: Normal Breath Sounds, No Rales, No Rhonchi, No Wheezing Extremity: Normal ROM, Capillary Refill (less than 2 seconds ) Neurological/Psych: Oriented x3, Normal Speech, Normal Cognition, No Other ( resting tremors noted ) ED Course And Treatment - Laboratory Results Result Diagrams: 01/24/18 14:27 01/24/18 14:27 O2 Sat by Pulse Oximetry: 98 (on RA) Pulse Ox Interpretation: Normal - Other Rad CXR X-Ray: Interpreted by Me, Viewed By Me, Read By Radiologist Interpretation: Chest x-ray single frontal view. History: Detox. Comparison: None available. Findings: Mild venous congestion. Right hilar prominence. Top normal heart size. Degenerative changes in the spine and shoulders. Impression: Mild venous congestion. Right hilar prominence. Medical Decision Making Medical Decision Making: Impression: 67 year old male for psychiatric evaluation Plan: * bloodwork * urinalysis * CXR * reassess and disposition Progress: bloodwork, urinalysis and CXR ordered and reviewed. Patient has been medically cleared. Disposition - Disposition Disposition: HOSPITALIZED Disposition Time: 15:40 Condition: STABLE - Clinical Impression Clinical Impression: Depression - Scribe Statement The provider has reviewed the documentation as recorded by the Scribe (Pauline Lorenzo) Provider Attestation: All medical record entries made by the Scribe were at my direction and personally dictated by me. I have reviewed the chart and agree that the record accurately reflects my personal performance of the history, physical exam, medical decision making, and the department course for this patient. I have also personally directed, reviewed, and agree with the discharge instructions and disposition.
[2018-01-24 15:04] LABS: BARBITURATES, UR NEGATIVE (NEGATIVE); BENZODIAZEPINES, UR NEGATIVE (NEGATIVE); OPIATES, UR NEGATIVE (NEGATIVE); PHENCYCLIDINE, UR NEGATIVE (NEGATIVE)
--- NOTE | 2018-01-24 15:31 | RAD ---
Chest x-ray single frontal view History: Detox. Comparison: None available. Findings: Mild venous congestion. Right hilar prominence. Top normal heart size. Degenerative changes in the spine and shoulders. Impression: Mild venous congestion. Right hilar prominence.
--- NOTE | 2018-01-24 21:05 | PCM.BM ---
<Jaswant Kennedy - Last Filed: 01/24/18 21:03> Treatment Plan Problems - Problems identified on initial assessmt Suicidal Ideation Date Initiated: 01/24/18 Time Initiated: 16:45 Assessment reference: NA Status: Monitor Auditory Hallucination Date Initiated: 01/24/18 Time Initiated: 16:45 Assessment reference: NA Status: Active Treatment assets and liabiliti Patient Liabilities: poor support system, relationship conflicts, substance abuse (Alcohol), medical problems - Milieu Protocol Maintain good personal hygiene: daily Encourage regular showers, daily Remind patient to perform daily oral care, every shift Assist patient to perform ADL's Conduct patient checks and document Observation sheet: Q15 minutes Maintain personal safety: every shift Educate patient to report safety concerns to staff, every shift Monitor environment for contraband/sharps Medication safety: Monitor for expected outcome, potential side effects: every shift, Assess barriers to learning: every shift, Assess readiness for medication education: every shift <Poly Yang - Last Filed: 01/25/18 11:34> Family Contact Family involvement: Family/SO is involved Family contact: Patient agrees to contact - Goals for Treatment Patient goals for treatment: "I need therapy." Discharge/Continuing Care - Education Needs Education Needs: Patient Medication, Patient Coping Skills, Patient Placement options, Patient Community resources - Discharge Discharge Criteria: Tolerates medication w/o severe side effects, Reduction of target symptoms Discharge to:: Substance Abuse Rehab - Treatment Team Participation Discussed with Family/SO: No Was Patient/Family/SO present at Treatment Team Meeting: Yes <Marilee Chairez - Last Filed: 01/25/18 12:54> - Diagnosis (1) Depression Status: Acute Interventions: 01/25/18 12:54 * Assess/adjust medications daily and /or as needed * See patient on an individual basis 7x/week to assess symptoms of depression * Monitor for side effects & effectiveness of medications *
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
[2018-01-25] MEDS: Metoprolol Succinate 100 mg XL Tab PO SCH (10:30)
--- NOTE | 2018-01-25 15:15 | CP.PCM.CON ---
<ScottStacy - Last Filed: 01/25/18 15:07> History of Present Illness - History of Present Illness History of Present Illness: Medicine consult note for Dr. Gonsales: 67 year old male with a past medical history of DM, HTN, HLD, Stroke (old found 3 months ago?), and Parkinsons? presented to [facility] today for suicidal with an attempt of drinking 14ozs of vanilla extract. Medical consult was placed for patient's history of stroke/seizures. Patient states he has no complaints at this time but states that he went to his primary/neurologist at [facility] about 3 months ago and had imaging of his head performed which showed that he had a stoke. Patient states that he feels weaker on his ride side since he was told this information. Patient states he does not think he has ever had a seizure. He admits to constipation. Denies headaches, changes in vision, N/V, SOB, abdominal pain, urinary complaints. He states he has a normal appetite and no difficulty swallowing. PMHx - DM, HTN, HLD, Stroke (old found 3 months ago?), and Parkinsons? Meds - abilify, sinemet, aricept, proscar, folic acid, neurontin, glyburide 5mg PO daily, ataraz, keppra 250mg PO BID, losartan 100mg PO daily, Metformin 500mg PO daily, Toprolol XL 100 mg PO daily, Crestor 10mg PO HS, flomax and trazodone Allergies - NKDA Surg - "fatty tumors" removed from back Fam hx - father had stoke in 70s Social - denies alcohol use, denies drug use but states he used to abuse Xanax, former smoke quit 9 months ago but used to smoke 2 packs a day since the age of 19 PMD - Dr. Eamon Arechiga Neuro - at [place], can't remember the name Review of Systems - Constitutional Constitutional: absent: Chills, Fever - EENT Eyes: absent: Blurred Vision, Change in Vision Ears: absent: Dizziness Nose/Mouth/Throat: absent: Sore Throat - Cardiovascular Cardiovascular: absent: Chest Pain, Chest Pain at Rest, Dyspnea on Exertion, Palpitations, Pedal Edema, Syncope - Respiratory Respiratory: absent: Cough, Dyspnea, Dyspnea on Exertion - Gastrointestinal Gastrointestinal: Constipation. absent: Abdominal Pain, Bloating, Diarrhea, Nausea, Vomiting - Genitourinary Genitourinary: absent: Change in Urinary Stream, Difficulty Urinating - Musculoskeletal Musculoskeletal: Back Pain. absent: Numbness, Tingling - Neurological Neurological: absent: Headaches, Weakness Past Patient History - Past Social History Smoking Status: Former Smoker - CARDIAC Hx Hypertension: Yes - PULMONARY Hx Tuberculosis: No - NEUROLOGICAL Hx Seizures: Yes (benzodiazepine related) - HEENT Hx HEENT Problems: No - RENAL Hx Chronic Kidney Disease: No - ENDOCRINE/METABOLIC Hx Endocrine Disorders: Yes Hx Diabetes Mellitus Type 2: Yes - HEMATOLOGICAL/ONCOLOGICAL Hx Human Immunodeficiency Virus (HIV): No - INTEGUMENTARY Hx Dermatological Problems: No - MUSCULOSKELETAL/RHEUMATOLOGICAL Hx Musculoskeletal Disorders: No - GASTROINTESTINAL Hx Gastrointestinal Disorders: No Hx Diarrhea: No Hx Vomiting: No - GENITOURINARY/GYNECOLOGICAL Hx Sexually Transmitted Disorders: No - PSYCHIATRIC Hx Substance Use: Yes - SURGICAL HISTORY Hx Surgeries: No Other/Comment: pt stated 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 - ANESTHESIA Hx Anesthesia: No Meds Allergies/Adverse Reactions: Allergies Allergy/AdvReac Type Severity Reaction Status Date / Time No Known Allergies Allergy Verified 01/24/18 16:41 - Medications Medications: Current Medications Aripiprazole (Abilify) 10 mg PO DAILY [facility] Last Admin: 01/25/18 10:29 Dose: 10 mg Carbidopa/Levodopa (Sinemet) 1 tab PO BID [facility] Last Admin: 01/25/18 09:24 Dose: Not Given Donepezil HCl (Aricept) 5 mg PO HS [facility] Last Admin: 01/24/18 21:26 Dose: 5 mg Finasteride (Proscar) 5 mg PO DAILY [facility] Last Admin: 01/25/18 10:30 Dose: 5 mg Folic Acid (Folic Acid) 1 mg PO DAILY [facility] Last Admin: 01/25/18 10:29 Dose: 1 mg Gabapentin (Neurontin) 100 mg PO TID [facility] Last Admin: 01/25/18 14:13 Dose: 100 mg Glyburide (Micronase) 5 mg PO DAILY [facility] Last Admin: 01/25/18 10:30 Dose: 5 mg Hydroxyzine HCl (Atarax) 25 mg PO Q6H PRN PRN Reason: Anxiety Last Admin: 01/25/18 01:49 Dose: 25 mg Levetiracetam (Keppra) 250 mg PO BID [facility] Last Admin: 01/25/18 10:29 Dose: 250 mg Losartan Potassium (Cozaar) 100 mg PO DAILY [facility] Last Admin: 01/25/18 10:30 Dose: 100 mg Metformin HCl (Glucophage) 500 mg PO DAILY [facility] Last Admin: 01/25/18 10:28 Dose: 500 mg Metoprolol Succinate (Toprol Xl) 100 mg PO DAILY [facility] Last Admin: 01/25/18 10:30 Dose: 100 mg Paroxetine HCl (Paxil) 40 mg PO DAILY [facility] Last Admin: 01/25/18 10:29 Dose: 40 mg Rosuvastatin Calcium (Crestor) 10 mg PO [facility] Last Admin: 01/24/18 21:26 Dose: 10 mg Tamsulosin HCl (Flomax) 0.4 mg PO DAILY [facility] Last Admin: 01/25/18 10:31 Dose: 0.4 mg Trazodone HCl (Desyrel) 50 mg PO [facility] Last Admin: 01/24/18 21:26 Dose: 50 mg Trazodone HCl (Desyrel) 100 mg PO [facility] Last Admin: 01/24/18 21:26 Dose: 100 mg Physical Exam - Constitutional Appears: Non-toxic, Younger Than Stated Age - Head Exam Head Exam: ATRAUMATIC, NORMAL INSPECTION - Eye Exam Eye Exam: EOMI, PERRL Pupil Exam: NORMAL ACCOMODATION - ENT Exam ENT Exam: Mucous Membranes Moist - Respiratory Exam Respiratory Exam: Clear to Auscultation Bilateral, NORMAL BREATHING PATTERN. absent: Respiratory Distress - Cardiovascular Exam Cardiovascular Exam: REGULAR RHYTHM, +S1, +S2, Systolic Murmur - GI/Abdominal Exam GI & Abdominal Exam: Normal Bowel Sounds, Soft. absent: Distended, Firm, Guarding, Tenderness - Extremities Exam Extremities exam: Positive for: normal inspection. Negative for: calf tenderness, pedal edema - Back Exam Back exam: NORMAL INSPECTION. absent: CVA tenderness (L), CVA tenderness (R), paraspinal tenderness - Neurological Exam Neurological exam: Alert, CN II-XII Intact, Oriented x3, Reflexes Normal Additional comments: Sensation in tact, finger to nose, heel to reinoso in tact, patient is mild facial droop on right side. 5/5 strength in all muscle groups. CN in tact - Psychiatric Exam Psychiatric exam: Flat Affect, Normal Mood Results - Vital Signs Recent Vital Signs: Last Vital Signs Temp 97.9 F 01/25/18 06:12 Pulse 89 01/25/18 06:12 Resp 18 01/25/18 06:12 BP 159/92 H 01/25/18 06:12 Pulse Ox 98 01/24/18 23:56 - Labs Result Diagrams: 01/24/18 14:27 01/24/18 14:27 Assessment & Plan - Assessment and Plan (Free Text) Assessment: Hx stroke with almost no deficits will f/u CT head noncontrast If normal will add ASA 81mg PO daily Continue on current medical therapy blood pressure and sugar control Hypertension Losartan 100mg PO daily Metformin 500mg PO daily Hyperlipidemia Continue Crestor Diabetes Continue Metformin and Glyburide Hx seizures? Continue keppra 250mg PO BID f/u level Patient to follow up with neurology outpatient Constipation Miralax BID prn <Selwyn Gonsales - Last Filed: 01/25/18 15:31> Meds - Medications Medications: Current Medications Aripiprazole (Abilify) 10 mg PO DAILY [facility] Last Admin: 01/25/18 10:29 Dose: 10 mg Aspirin (Aspirin Chewable) 81 mg PO DAILY [facility] Carbidopa/Levodopa (Sinemet) 1 tab PO BID [facility] Last Admin: 01/25/18 09:24 Dose: Not Given Donepezil HCl (Aricept) 5 mg PO HS [facility] Last Admin: 01/24/18 21:26 Dose: 5 mg Finasteride (Proscar) 5 mg PO DAILY [facility] Last Admin: 01/25/18 10:30 Dose: 5 mg Folic Acid (Folic Acid) 1 mg PO DAILY [facility] Last Admin: 01/25/18 10:29 Dose: 1 mg Gabapentin (Neurontin) 100 mg PO TID [facility] Last Admin: 01/25/18 14:13 Dose: 100 mg Glyburide (Micronase) 5 mg PO DAILY [facility] Last Admin: 01/25/18 10:30 Dose: 5 mg Hydroxyzine HCl (Atarax) 25 mg PO Q6H PRN PRN Reason: Anxiety Last Admin: 01/25/18 01:49 Dose: 25 mg Levetiracetam (Keppra) 250 mg PO BID [facility] Last Admin: 01/25/18 10:29 Dose: 250 mg Losartan Potassium (Cozaar) 100 mg PO DAILY [facility] Last Admin: 01/25/18 10:30 Dose: 100 mg Metformin HCl (Glucophage) 500 mg PO DAILY [facility] Last Admin: 01/25/18 10:28 Dose: 500 mg Metoprolol Succinate (Toprol Xl) 100 mg PO DAILY [facility] Last Admin: 01/25/18 10:30 Dose: 100 mg Paroxetine HCl (Paxil) 40 mg PO DAILY [facility] Last Admin: 01/25/18 10:29 Dose: 40 mg Rosuvastatin Calcium (Crestor) 10 mg PO [facility] Last Admin: 01/24/18 21:26 Dose: 10 mg Tamsulosin HCl (Flomax) 0.4 mg PO DAILY [facility] Last Admin: 01/25/18 10:31 Dose: 0.4 mg Trazodone HCl (Desyrel) 50 mg PO [facility] Last Admin: 01/24/18 21:26 Dose: 50 mg Trazodone HCl (Desyrel) 100 mg PO [facility] Last Admin: 01/24/18 21:26 Dose: 100 mg Results - Vital Signs Recent Vital Signs: Last Vital Signs Temp 97.9 F 01/25/18 06:12 Pulse 73 01/25/18 15:24 Resp 18 01/25/18 06:12 BP 131/89 01/25/18 15:24 Pulse Ox 98 01/24/18 23:56 - Labs Result Diagrams: 01/24/18 14:27 01/24/18 14:27 Attending/Attestation - Attestation I have personally seen and examined this patient.: Yes I have fully participated in the care of the patient.: Yes I have reviewed all pertinent clinical information: Yes Notes (Text): 01/25/18 15:30 Medical consult: Patient was seen and examined by me, agrees by the medical health researcher. We came and saw the patient, he was mostly somnolent and was rather hesitant to talk. This being said he reported that a few months ago he believes that he had a stroke. He supposedly has seeing a neurologist at [facility]. On her physical exam the patient he is bilaterally very strong. He has good hand grasp is 5 out of 5 strength, he is able to flex and extend his elbows. He is able to raise both his arms past 90. There is some question if he has a facial droop not I did ask him to smile and stick his tongue out I did not immediately appreciate any difference at that time. His extraocular eye muscles are intact. He is also able to raise both his legs up from a laying position for greater than 5 seconds as well as. The patient was already on Crestor, we will add on aspirin he also has blood pressure medication as well. So at this time will get a CAT scan without contrast of the head to further evaluate what the patient has been telling us Thank you very much, Selwyn Gonsales
--- NOTE | 2018-01-26 08:51 | CT ---
PROCEDURE: CT HEAD WITHOUT CONTRAST. HISTORY: History of stroke COMPARISON: None available. TECHNIQUE: Axial computed tomography images were obtained through the head/brain without intravenous contrast. Radiation dose: Total exam DLP = 864.54 mGy-cm. This CT exam was performed using one or more of the following dose reduction techniques: Automated exposure control, adjustment of the mA and/or kV according to patient size, and/or use of iterative reconstruction technique. FINDINGS: HEMORRHAGE: No intracranial hemorrhage. BRAIN: Mild chronic periventricular white matter ischemic changes seen extending into the deep and subcortical white matter of both cerebral hemispheres. In addition, there are a few scattered chronic bilateral basal nuclei lacunar type infarcts Mild generalized volume loss Vascular calcifications both carotid siphons and vertebral arteries. VENTRICLES: No obstructive hydrocephalus. CALVARIUM: No acute calvarial fractures. PARANASAL SINUSES: Opacification anterior superior left-sided ethmoid air cell MASTOID AIR CELLS: Unremarkable as visualized. No inflammatory changes. OTHER FINDINGS: None. IMPRESSION: Mild chronic periventricular white matter ischemic changes seen extending into the deep and subcortical white matter of both cerebral hemispheres. In addition, there are a few scattered chronic bilateral basal nuclei lacunar type infarcts Mild generalized volume loss
[2018-01-26] MEDS: Metoprolol Succinate 100 mg XL Tab PO SCH (09:15)
--- NOTE | 2018-01-26 18:41 | CP.PCM.PN ---
Subjective - Date & Time of Evaluation Date of Evaluation: 01/26/18 Time of Evaluation: 11:30 - Subjective Subjective: Medicine progress note for Dr. Gonsales's service Patient seen and examined. Patient walking around unit with walker. Patient states he has no complaint other than he would like to shower. Objective - Vital Signs/Intake and Output Vital Signs (last 24 hours): Temp Pulse Resp BP Pulse Ox 97.6 F 64 20 109/68 100 01/26/18 06:39 01/26/18 16:23 01/26/18 06:39 01/26/18 16:23 01/26/18 06:39 - Medications Medications: Current Medications Aripiprazole (Abilify) 10 mg PO DAILY [facility] Last Admin: 01/26/18 09:10 Dose: 10 mg Aspirin (Aspirin Chewable) 81 mg PO DAILY [facility] Last Admin: 01/26/18 10:17 Dose: 81 mg Carbidopa/Levodopa (Sinemet) 1 tab PO BID [facility] Last Admin: 01/26/18 09:15 Dose: 1 tab Donepezil HCl (Aricept) 5 mg PO HS [facility] Last Admin: 01/25/18 21:50 Dose: 5 mg Finasteride (Proscar) 5 mg PO DAILY [facility] Last Admin: 01/26/18 09:14 Dose: 5 mg Folic Acid (Folic Acid) 1 mg PO DAILY [facility] Last Admin: 01/26/18 09:10 Dose: 1 mg Gabapentin (Neurontin) 100 mg PO TID [facility] Last Admin: 01/26/18 17:27 Dose: 100 mg Glyburide (Micronase) 5 mg PO DAILY [facility] Last Admin: 01/26/18 09:14 Dose: 5 mg Hydroxyzine HCl (Atarax) 25 mg PO Q6H PRN PRN Reason: Anxiety Last Admin: 01/25/18 01:49 Dose: 25 mg Ibuprofen (Motrin Tab) 600 mg PO TID PRN PRN Reason: Pain, moderate (4-7) Levetiracetam (Keppra) 250 mg PO BID [facility] Last Admin: 01/26/18 17:27 Dose: 250 mg Losartan Potassium (Cozaar) 100 mg PO DAILY [facility] Last Admin: 01/26/18 09:14 Dose: 100 mg Metformin HCl (Glucophage) 500 mg PO DAILY [facility] Last Admin: 01/26/18 09:10 Dose: 500 mg Metoprolol Succinate (Toprol Xl) 100 mg PO DAILY [facility] Last Admin: 01/26/18 09:15 Dose: 100 mg Paroxetine HCl (Paxil) 40 mg PO DAILY [facility] Last Admin: 01/26/18 09:10 Dose: 40 mg Rosuvastatin Calcium (Crestor) 10 mg PO [facility] Last Admin: 01/25/18 21:50 Dose: 10 mg Tamsulosin HCl (Flomax) 0.4 mg PO DAILY [facility] Last Admin: 01/26/18 09:14 Dose: 0.4 mg Trazodone HCl (Desyrel) 100 mg PO HS [facility] Last Admin: 01/25/18 21:50 Dose: 100 mg - Labs Labs: 01/24/18 14:27 01/24/18 14:27 - Constitutional Appears: Non-toxic, No Acute Distress - Head Exam Head Exam: ATRAUMATIC, NORMOCEPHALIC - Eye Exam Eye Exam: EOMI - ENT Exam ENT Exam: Mucous Membranes Moist - Respiratory Exam Respiratory Exam: Clear to Ausculation Bilateral, NORMAL BREATHING PATTERN - Cardiovascular Exam Cardiovascular Exam: +S1, +S2 - GI/Abdominal Exam GI & Abdominal Exam: Soft. absent: Tenderness - Extremities Exam Extremities Exam: Normal Inspection. absent: Pedal Edema - Neurological Exam Neurological Exam: Alert, Awake, Oriented x3 Neuro motor strength exam: Left Upper Extremity: 5, Right Upper Extremity: 5, Left Lower Extremity: 5, Right Lower Extremity: 5 - Skin Skin Exam: Warm Assessment and Plan - Assessment and Plan (Free Text) Assessment: Hx stroke with almost no deficits Continue on current medical therapy blood pressure and sugar control ASA 81mg daily CT head with no acute findings: CT head: mild chronic periventricular white matter ischemic changes extending into deep and subcortical white matter of both cerebral hemispheres. Scattered chronic bilateral basal nuclei lacunar type infarcts. Mild generalized volume loss. Hypertension Losartan 100mg PO daily Metformin 500mg PO daily Hyperlipidemia Continue Crestor Diabetes Continue Metformin and Glyburide Hx seizures? Continue keppra 250mg PO BID f/u level Patient to follow up with neurology outpatient Constipation Miralax BID prn Thank you for this consult. Medicine team will sign off.
--- NOTE | 2018-01-26 20:30 | PCM.PYCHPN ---
Psychiatric Progress Note - Psychiatric Progress Note Patient seen today, length of contact: 15 minutes Patient Chief Complaint: "I'm feeling Okay". Problems Identified/Issues Discussed: Pt was seen and evaluated. Chart reviewed and nurse input received. Pt is compliant with medication and denied side effects. He reported that his depressive symptoms are improving slowly. Pt is eating and sleeping fine. He stated that he is worried about his medical conditions. He needs time to stabilize. He denied perceptual disturbances. Mental Status Examination - Cognitive Function Orientation: Person, Place, Situation, Time Memory: Intact Attention: WNL Concentration: Poor Association: WNL Fund of Knowledge: WNL Decription of patient's judgement and insights: limited/Fair Addtional comments: He is wearing hospital gowns walking with walker - Mood Mood: Depressed, Anxious - Affect Affect: Constricted, Depressed - Speech Speech: Soft - Formal Thought Process Formal Thought Process: No Impairment Psychotic Thoughts and Behaviors: denied - Suicidal Ideation Suicidal Ideation: No Plan: denied - Homicidal Ideation Homicidal Ideation: No Plan: denied Goal/Treatment Plan - Goal/Treatment Plan Need for Continued Stay: Severe depression anxiety, Discharge may exacerbated symptoms Progress Toward Problem(s) and Goals/Treatment Plan: Continue medications Support and psychoeducation daily Attend groups and activities daily After care planning by VILMA Estimated Date of D/C: 01/31/18 - Smoking Cessation Smoking Cessation Initiated: Yes
[2018-01-27] MEDS: Metoprolol Succinate 100 mg XL Tab PO SCH (10:42)
--- NOTE | 2018-01-27 15:19 | PCM.PYCHPN ---
Psychiatric Progress Note - Psychiatric Progress Note Patient seen today, length of contact: 15 minutes Patient Chief Complaint: "I'm feeling nervous" Problems Identified/Issues Discussed: Pt was seen and evaluated. Chart reviewed and nurse input received that he is compliant with his meds. He reported that he is feeling "Fine". He is improving slowly and he needs time to stabilized. Pt is using walker to ambulate in the unit. He needs redirection to attend the groups activities. Mental Status Examination - Cognitive Function Orientation: Person, Place, Situation, Time Memory: Intact Attention: WNL Concentration: Poor Association: WNL Fund of Knowledge: WNL Decription of patient's judgement and insights: Improving/Improving - Mood Mood: Depressed, Anxious - Affect Affect: Constricted, Depressed - Speech Speech: Soft - Formal Thought Process Formal Thought Process: No Impairment Psychotic Thoughts and Behaviors: denied - Suicidal Ideation Suicidal Ideation: No Plan: denied - Homicidal Ideation Homicidal Ideation: No Plan: denied Goal/Treatment Plan - Goal/Treatment Plan Need for Continued Stay: Severe depression anxiety, Discharge may exacerbated symptoms Progress Toward Problem(s) and Goals/Treatment Plan: Continue current medication as per primary team Medication benefits s/e discussed with the pt. He verbalized understanding and agree with the treatment plan. Therapy in milieu. Psycho-education provided
--- NOTE | 2018-01-28 10:04 | PCM.PYCHPN ---
Psychiatric Progress Note - Psychiatric Progress Note Patient seen today, length of contact: 15 minutes Patient Chief Complaint: I m still feeling depressed.' Problems Identified/Issues Discussed: Patient seen and evaluated, chart reviewed and discussed with the nurse. He still reports depressed mood and at times feelings of hopelessness and helplessness. Patient remained isolated, confined and withdrawn. Patient reports some improvement in his sleep. Patient is compliant with medications and denies any side effects. Symptoms are improving but need more time to stabilize. Support and psychoeducation given. Medication Change: Yes Medical Record Reviewed: Yes Mental Status Examination - Cognitive Function Orientation: Person, Place, Situation, Time Memory: Intact Attention: WNL Concentration: Poor Association: WNL Fund of Knowledge: WNL - Mood Mood: Depressed, Anxious - Affect Affect: Constricted, Depressed - Speech Speech: Soft - Formal Thought Process Formal Thought Process: No Impairment - Suicidal Ideation Suicidal Ideation: No - Homicidal Ideation Homicidal Ideation: No Goal/Treatment Plan - Goal/Treatment Plan Need for Continued Stay: Severe depression anxiety, Discharge may exacerbated symptoms Progress Toward Problem(s) and Goals/Treatment Plan: Bipolar disorder depressed severe with psychotic features Alcohol use disorder severe Parkinsons disease HTN DM h/o Stroke Dementia Hypercholestrolimia CBT Psychoeducation Supportive therapy, group therapy, individual therapy Paxil 40 mg Trazodone 50 mg by mouth daily at bedtime Keppra 250mg BID Abilify 10 mg ASA 81 mg Donepezil 5 mg Finasteride 5mg Carbidopa/Levodopa 1 tab BID Flomax 0.4mg Metoprolol 100 mg Metformin 500 mg BID Glyburide 5 mg Gabapentin 100 mg PO TID Estimated Date of D/C: 01/31/18
[2018-01-28] MEDS: Metoprolol Succinate 100 mg XL Tab PO SCH (10:27)
[2018-01-29] MEDS: Metoprolol Succinate 100 mg XL Tab PO SCH (09:44)
--- NOTE | 2018-01-29 11:19 | PCM.PYCHPN ---
Psychiatric Progress Note - Psychiatric Progress Note Patient seen today, length of contact: 15 minutes Patient Chief Complaint: I was feeling depressed and suicidal.' Problems Identified/Issues Discussed: Patient seen and evaluated, chart reviewed and discussed with the nurse. As per the staff, he is regressing and asking for help in eating and taking meds. He still reports depressed mood but reports some improvement in the feelings of hopelessness and helplessness. Patient remained isolated, confined and withdrawn. Patient reports some improvement in his sleep. Patient is compliant with medications and denies any side effects. Symptoms are improving but need more time to stabilize. Support and psychoeducation given. Medication Change: Yes Medical Record Reviewed: Yes Mental Status Examination - Cognitive Function Orientation: Person, Place, Situation, Time Memory: Intact Attention: WNL Concentration: Poor Association: WNL Fund of Knowledge: WNL - Mood Mood: Depressed, Anxious - Affect Affect: Constricted, Depressed - Speech Speech: Soft - Formal Thought Process Formal Thought Process: No Impairment - Suicidal Ideation Suicidal Ideation: No - Homicidal Ideation Homicidal Ideation: No Goal/Treatment Plan - Goal/Treatment Plan Need for Continued Stay: Severe depression anxiety, Discharge may exacerbated symptoms Progress Toward Problem(s) and Goals/Treatment Plan: Bipolar disorder depressed severe with psychotic features Alcohol use disorder severe Parkinsons disease HTN DM h/o Stroke Dementia Hypercholestrolimia CBT Psychoeducation Supportive therapy, group therapy, individual therapy Paxil 40 mg Trazodone 50 mg by mouth daily at bedtime Keppra 250mg BID Abilify 10 mg ASA 81 mg Donepezil 5 mg Finasteride 5mg Carbidopa/Levodopa 1 tab BID Flomax 0.4mg Metoprolol 100 mg Metformin 500 mg BID Glyburide 5 mg Gabapentin 100 mg PO TID Estimated Date of D/C: 01/31/18 - Smoking Cessation Smoking Cessation Initiated: No
[2018-01-30] MEDS: Metoprolol Succinate 100 mg XL Tab PO SCH (09:53)
--- NOTE | 2018-01-30 18:39 | PCM.PYCHPN ---
Psychiatric Progress Note - Psychiatric Progress Note Patient seen today, length of contact: 15 minutes Patient Chief Complaint: "I'm feeling fine" Problems Identified/Issues Discussed: Pt was seen and evaluated. Chart reviewed and nurse input received that he is compliant with his meds. He reported that he is feeling "Fine". He is improving slowly and he needs time to stabilized. Pt is using walker to ambulate in the unit. He needs redirection to attend the groups activities. Medication Change: Yes Medical Record Reviewed: Yes Mental Status Examination - Cognitive Function Orientation: Person, Place, Situation, Time Memory: Intact Attention: WNL Concentration: Poor Association: WNL Fund of Knowledge: WNL Decription of patient's judgement and insights: improving/improving - Mood Mood: Depressed, Anxious - Affect Affect: Constricted, Depressed - Speech Speech: Soft - Formal Thought Process Formal Thought Process: No Impairment - Suicidal Ideation Suicidal Ideation: No Plan: denied - Homicidal Ideation Homicidal Ideation: No Plan: denied Goal/Treatment Plan - Goal/Treatment Plan Need for Continued Stay: Severe depression anxiety, Discharge may exacerbated symptoms Progress Toward Problem(s) and Goals/Treatment Plan: Continue current medication as per primary team Medication benefits s/e discussed with the pt. He verbalized understanding and agree with the treatment plan. Therapy in milieu. Psycho-education provided Estimated Date of D/C: 01/31/18 - Smoking Cessation Smoking Cessation Initiated: Yes
[2018-01-31] MEDS: Metoprolol Succinate 100 mg XL Tab PO SCH (09:35)
--- NOTE | 2018-01-31 09:53 | PCM.PYCHPN ---
Psychiatric Progress Note - Psychiatric Progress Note Patient seen today, length of contact: 15 minutes Patient Chief Complaint: I was feeling depressed and suicidal.' Problems Identified/Issues Discussed: Mr. Hennessy says that he is doing better since his admission to the behavioral health floor. As he describes, his symptoms were at a 10/10 in severity, but is now a 5-6/10. As a baseline, his symptoms are usually a 2-3/10. As per the staff, he is regressing and asking for help in eating and taking meds. He still reports depressed mood but reports some improvement in the feelings of hopelessness and helplessness. Patient remained isolated, confined and withdrawn. Patient reports some improvement in his sleep. Patient is compliant with medications and denies any side effects. Symptoms are improving but need more time to stabilize. Support and psychoeducation given. Medication Change: Yes Medical Record Reviewed: Yes Mental Status Examination - Cognitive Function Orientation: Person, Place, Situation, Time Memory: Intact Attention: WNL Concentration: Poor Association: WNL Fund of Knowledge: WNL - Mood Mood: Depressed, Anxious - Affect Affect: Constricted, Depressed - Speech Speech: Soft - Formal Thought Process Formal Thought Process: No Impairment - Suicidal Ideation Suicidal Ideation: No - Homicidal Ideation Homicidal Ideation: No Goal/Treatment Plan - Goal/Treatment Plan Need for Continued Stay: Severe depression anxiety, Discharge may exacerbated symptoms Progress Toward Problem(s) and Goals/Treatment Plan: Bipolar disorder depressed severe with psychotic features Alcohol use disorder severe Parkinsons disease HTN DM h/o Stroke Dementia Hypercholestrolimia CBT Psychoeducation Supportive therapy, group therapy, individual therapy Paxil 40 mg Trazodone 50 mg by mouth daily at bedtime Keppra 250mg BID Abilify 10 mg ASA 81 mg Donepezil 5 mg Finasteride 5mg Carbidopa/Levodopa 1 tab BID Flomax 0.4mg Metoprolol 100 mg Metformin 500 mg BID Glyburide 5 mg Gabapentin 100 mg PO TID Estimated Date of D/C: 01/31/18
--- NOTE | 2018-02-01 08:20 | PCM.BM ---
<Anneliese Bloom - Last Filed: 02/01/18 08:19> Treatment Plan Problems - Problems identified on initial assessmt Suicidal Ideation Date Initiated: 01/24/18 Time Initiated: 16:45 Assessment reference: NA Status: Monitor Auditory Hallucination Date Initiated: 01/24/18 Time Initiated: 16:45 Assessment reference: NA Status: Active Treatment assets and liabiliti Patient Liabilities: poor support system, relationship conflicts, substance abuse (Alcohol), medical problems - Milieu Protocol Maintain good personal hygiene: daily Encourage regular showers, daily Remind patient to perform daily oral care, every shift Assist patient to perform ADL's Conduct patient checks and document Observation sheet: Q15 minutes Maintain personal safety: every shift Educate patient to report safety concerns to staff, every shift Monitor environment for contraband/sharps Medication safety: Monitor for expected outcome, potential side effects: every shift, Assess barriers to learning: every shift, Assess readiness for medication education: every shift Milieu Narrative: Bipolar disorder depressed severe with psychotic features Alcohol use disorder severe Parkinsons disease HTN DM h/o Stroke Dementia Hypercholestrolimia CBT Psychoeducation Supportive therapy, group therapy, individual therapy Paxil 40 mg Trazodone 50 mg by mouth daily at bedtime Keppra 250mg BID Abilify 10 mg ASA 81 mg Donepezil 5 mg Finasteride 5mg Carbidopa/Levodopa 1 tab BID Flomax 0.4mg Metoprolol 100 mg Metformin 500 mg BID Glyburide 5 mg Gabapentin 100 mg PO TID Family Contact Family involvement: Family/SO is involved Family contact: Patient agrees to contact - Goals for Treatment Patient goals for treatment: "I need therapy." Discharge/Continuing Care - Education Needs Education Needs: Patient Medication, Patient Coping Skills, Patient Placement options, Patient Community resources - Discharge Discharge Criteria: Tolerates medication w/o severe side effects, Reduction of target symptoms Discharge to:: Substance Abuse Rehab - Treatment Team Participation Patient/Family/SO Statement: Bipolar disorder depressed severe with psychotic features Alcohol use disorder severe Parkinsons disease HTN DM h/o Stroke Dementia Hypercholestrolimia CBT Psychoeducation Supportive therapy, group therapy, individual therapy Paxil 40 mg Trazodone 50 mg by mouth daily at bedtime Keppra 250mg BID Abilify 10 mg ASA 81 mg Donepezil 5 mg Finasteride 5mg Carbidopa/Levodopa 1 tab BID Flomax 0.4mg Metoprolol 100 mg Metformin 500 mg BID Glyburide 5 mg Gabapentin 100 mg PO TID Discussed with Family/SO: No Was Patient/Family/SO present at Treatment Team Meeting: Yes Treatment Plan Review - Problem Suicidal Ideation Time Initiated: 16:45 Auditory Hallucination Time Initiated: 16:45 - Discharge / Continuing Care Discharge to:: Home Behavioral Health Services: Outpatient therapy Health Needs: Follow up care/test, Medications/Rx <Marilee Chairez - Last Filed: 02/05/18 07:37> - Diagnosis (1) Depression Status: Acute Interventions: 02/05/18 07:37 * Assess/adjust medications daily and /or as needed * See patient on an individual basis 7x/week to assess symptoms of depression * Monitor for side effects & effectiveness of medications *
[2018-02-01] MEDS: Metoprolol Succinate 100 mg XL Tab PO SCH (09:37)
--- NOTE | 2018-02-01 10:14 | PCM.PYCHPN ---
Psychiatric Progress Note - Psychiatric Progress Note Patient seen today, length of contact: 15 minutes Patient Chief Complaint: I m feeling little better.' Problems Identified/Issues Discussed: Pt seen and evaluated, chart reviewed and discussed with the staff. Mr. Hennessy says that he is doing better since his admission to the behavioral health floor. As he describes, his symptoms were at a 10/10 in severity, but is now a 5-6/10. As a baseline, his symptoms are usually a 2-3/10. He still reports depressed mood but reports some improvement in the feelings of hopelessness and helplessness. Patient remained isolated, confined and withdrawn. Patient reports some improvement in his sleep. Patient is compliant with medications and denies any side effects. Symptoms are improving but need more time to stabilize. Support and psychoeducation given. Medication Change: Yes Medical Record Reviewed: Yes Mental Status Examination - Cognitive Function Orientation: Person, Place, Situation, Time Memory: Intact Attention: WNL Concentration: Poor Association: WNL Fund of Knowledge: WNL - Mood Mood: Depressed, Anxious - Affect Affect: Constricted, Depressed - Speech Speech: Soft - Formal Thought Process Formal Thought Process: No Impairment - Suicidal Ideation Suicidal Ideation: No - Homicidal Ideation Homicidal Ideation: No Goal/Treatment Plan - Goal/Treatment Plan Need for Continued Stay: Severe depression anxiety, Discharge may exacerbated symptoms Progress Toward Problem(s) and Goals/Treatment Plan: Bipolar disorder depressed severe with psychotic features Alcohol use disorder severe Parkinsons disease HTN DM h/o Stroke Dementia Hypercholestrolimia CBT Psychoeducation Supportive therapy, group therapy, individual therapy Paxil 40 mg Trazodone 50 mg by mouth daily at bedtime Keppra 250mg BID Abilify 10 mg ASA 81 mg Donepezil 5 mg Finasteride 5mg Carbidopa/Levodopa 1 tab BID Flomax 0.4mg Metoprolol 100 mg Metformin 500 mg BID Glyburide 5 mg Gabapentin 100 mg PO TID Estimated Date of D/C: 01/31/18
--- NOTE | 2018-02-01 10:53 | PCM.BM ---
<Kellie Douglas - Last Filed: 02/01/18 10:49> Treatment Plan Problems - Problems identified on initial assessmt Suicidal Ideation Date Initiated: 01/24/18 Time Initiated: 16:45 Assessment reference: NA Status: Monitor Auditory Hallucination Date Initiated: 01/24/18 Time Initiated: 16:45 Assessment reference: NA Status: Active Treatment assets and liabiliti Patient Liabilities: poor support system, relationship conflicts, substance abuse (Alcohol), medical problems - Milieu Protocol Maintain good personal hygiene: daily Encourage regular showers, daily Remind patient to perform daily oral care, every shift Assist patient to perform ADL's Conduct patient checks and document Observation sheet: Q15 minutes Maintain personal safety: every shift Educate patient to report safety concerns to staff, every shift Monitor environment for contraband/sharps Medication safety: Monitor for expected outcome, potential side effects: every shift, Assess barriers to learning: every shift, Assess readiness for medication education: every shift Milieu Narrative: Bipolar disorder depressed severe with psychotic features Alcohol use disorder severe Parkinsons disease HTN DM h/o Stroke Dementia Hypercholestrolimia CBT Psychoeducation Supportive therapy, group therapy, individual therapy Paxil 40 mg Trazodone 50 mg by mouth daily at bedtime Keppra 250mg BID Abilify 10 mg ASA 81 mg Donepezil 5 mg Finasteride 5mg Carbidopa/Levodopa 1 tab BID Flomax 0.4mg Metoprolol 100 mg Metformin 500 mg BID Glyburide 5 mg Gabapentin 100 mg PO TID Family Contact Family involvement: Family/SO is involved Family contact: Patient agrees to contact - Goals for Treatment Patient goals for treatment: "I need therapy." Discharge/Continuing Care - Education Needs Education Needs: Patient Medication, Patient Coping Skills, Patient Placement options, Patient Community resources - Discharge Discharge Criteria: Tolerates medication w/o severe side effects, Reduction of target symptoms Discharge to:: Home - Treatment Team Participation Patient/Family/SO Statement: Bipolar disorder depressed severe with psychotic features Alcohol use disorder severe Parkinsons disease HTN DM h/o Stroke Dementia Hypercholestrolimia CBT Psychoeducation Supportive therapy, group therapy, individual therapy Paxil 40 mg Trazodone 50 mg by mouth daily at bedtime Keppra 250mg BID Abilify 10 mg ASA 81 mg Donepezil 5 mg Finasteride 5mg Carbidopa/Levodopa 1 tab BID Flomax 0.4mg Metoprolol 100 mg Metformin 500 mg BID Glyburide 5 mg Gabapentin 100 mg PO TID Discussed with Family/SO: No Was Patient/Family/SO present at Treatment Team Meeting: Yes Treatment Plan Review - Problem Suicidal Ideation Time Initiated: 16:45 Auditory Hallucination Time Initiated: 16:45 <Marilee Chairez - Last Filed: 02/02/18 03:50> - Diagnosis (1) Depression Status: Acute Interventions: 02/02/18 03:50 * Assess/adjust medications daily and /or as needed * See patient on an individual basis 7x/week to assess symptoms of depression * Monitor for side effects & effectiveness of medications *
[2018-02-02] MEDS: Metoprolol Succinate 100 mg XL Tab PO SCH (09:48)
--- NOTE | 2018-02-02 14:35 | PCM.PYCHPN ---
Psychiatric Progress Note - Psychiatric Progress Note Patient seen today, length of contact: 15 minutes Patient Chief Complaint: I'm feeling better. Sometimes I feel bored. Problems Identified/Issues Discussed: Patient seen, chart reviewed, case was discussed with the staff. Issues related to illness and treatment were discussed with the staff and the patient. Reported compliant with treatment with no adverse effects. Tolerating treatment very well. Also reported feeling bored at times. Patient was encouraged to go out to attend groups and other activities on the unit. Patient agreed. Patient reported feeling much better. Patient was calm and cooperative. Risks and benefits of medications were discussed with the patient. After clear discussed with patient. At the time of evaluation, patient was awake alert oriented x3, no delusions, no auditory hallucination or visual hallucinations, no suicidal or homicidal ideations. Medical Problems: Hypertension Diabetes mellitus History of stroke Diagnostic Results: Reviewed DSM 5 Symptoms Update: Improving with treatment. Medication Change: No Medical Record Reviewed: Yes Mental Status Examination - Cognitive Function Orientation: Person, Place, Situation, Time Memory: Intact Attention: WNL Concentration: WNL Association: WN Fund of Knowledge: [facility] Decription of patient's judgement and insights: Fair - Mood Mood: Depressed (Much less than before) - Affect Affect: Other (Appropriate) - Speech Speech: Soft - Formal Thought Process Formal Thought Process: No Impairment Psychotic Thoughts and Behaviors: None - Suicidal Ideation Suicidal Ideation: No - Homicidal Ideation Homicidal Ideation: No Goal/Treatment Plan - Goal/Treatment Plan Need for Continued Stay: Remain at risks for inpatient hospitalization, Discharge may exacerbated symptoms, Severe functional impairment Progress Toward Problem(s) and Goals/Treatment Plan: Improving with treatment. Patient education. Supportive therapy. Continue treatment as before. Estimated Date of D/C: 02/04/18 - Smoking Cessation Smoking Cessation Initiated: No
[2018-02-03 06:30] VITALS: RESP 20; O2SAT 97
[2018-02-03] MEDS: Metoprolol Succinate 100 mg XL Tab PO SCH (09:31)
--- NOTE | 2018-02-03 17:43 | PCM.PYCHPN ---
Psychiatric Progress Note - Psychiatric Progress Note Patient seen today, length of contact: 15 minutes Patient Chief Complaint: I'm feeling better. Problems Identified/Issues Discussed: Patient seen, chart reviewed, case was discussed with the staff. Issues related to illness and treatment were discussed with the staff and the patient. Reported compliant with treatment with no adverse effects. Tolerating treatment very well. Patient was encouraged to go out to attend groups and other activities on the unit. Patient agreed. Patient reported feeling much better. Patient was calm and cooperative. Risks and benefits of medications were discussed with the patient. After clear discussed with patient. At the time of evaluation, patient was awake alert oriented x3, no delusions, no auditory hallucination or visual hallucinations, no suicidal or homicidal ideations. Medical Problems: Hypertension Diabetes mellitus History of stroke Diagnostic Results: Reviewed DSM 5 Symptoms Update: Improving with treatment Medication Change: No Medical Record Reviewed: Yes Mental Status Examination - Cognitive Function Orientation: Person, Place, Situation, Time Memory: Intact Attention: WNL Concentration: WNL Association: WN Fund of Knowledge: [facility] Decription of patient's judgement and insights: Fair - Mood Mood: Depressed (Much less than before) - Affect Affect: Other (Appropriate) - Speech Speech: Soft - Formal Thought Process Formal Thought Process: No Impairment Psychotic Thoughts and Behaviors: None - Suicidal Ideation Suicidal Ideation: No - Homicidal Ideation Homicidal Ideation: No Goal/Treatment Plan - Goal/Treatment Plan Need for Continued Stay: Remain at risks for inpatient hospitalization, Discharge may exacerbated symptoms, Severe functional impairment Progress Toward Problem(s) and Goals/Treatment Plan: Improving with treatment. Patient education. Supportive therapy. Continue treatment as before. Estimated Date of D/C: 02/04/18 - Smoking Cessation Smoking Cessation Initiated: No
[2018-02-04] MEDS: Metoprolol Succinate 100 mg XL Tab PO SCH (10:09)
--- NOTE | 2018-02-04 15:10 | PCM.PYCHPN ---
Psychiatric Progress Note - Psychiatric Progress Note Patient seen today, length of contact: 15 minutes Patient Chief Complaint: I was feeling depressed and suicidal.' Problems Identified/Issues Discussed: Mr. Hennessy said that he generally felt worse since Sunday. He said, "everything is worse." The aspects which is says are worse are the following: anxiety, mood, depression, sleep, interest, guilt, concentration, and racing thoughts. Energy, appetite and movement are the same. His speech has improved. He does not have hallucination, nor does he have suicidal/homicidal ideation. Medication Change: No Medical Record Reviewed: Yes Mental Status Examination - Cognitive Function Orientation: Person, Place, Situation, Time Memory: Intact Attention: WNL Concentration: WNL Association: WNL Fund of Knowledge: WNL - Mood Mood: Depressed (Much less than before) - Affect Affect: Other (Appropriate) - Speech Speech: Soft - Formal Thought Process Formal Thought Process: No Impairment - Suicidal Ideation Suicidal Ideation: No - Homicidal Ideation Homicidal Ideation: No Goal/Treatment Plan - Goal/Treatment Plan Need for Continued Stay: Remain at risks for inpatient hospitalization, Discharge may exacerbated symptoms, Severe functional impairment Progress Toward Problem(s) and Goals/Treatment Plan: Bipolar disorder depressed severe with psychotic features Alcohol use disorder severe Parkinsons disease HTN DM h/o Stroke Dementia Hypercholestrolimia CBT Psychoeducation Supportive therapy, group therapy, individual therapy Paxil 40 mg Trazodone 50 mg by mouth daily at bedtime Keppra 250mg BID Abilify 10 mg ASA 81 mg Donepezil 5 mg Finasteride 5mg Carbidopa/Levodopa 1 tab BID Flomax 0.4mg Metoprolol 100 mg Metformin 500 mg BID Glyburide 5 mg Gabapentin 100 mg PO TID Estimated Date of D/C: 02/04/18
[2018-02-05] MEDS: Metoprolol Succinate 100 mg XL Tab PO SCH (09:50)
--- NOTE | 2018-02-05 09:59 | PCM.PYCHPN ---
Psychiatric Progress Note - Psychiatric Progress Note Patient seen today, length of contact: 15 minutes Patient Chief Complaint: I m feeling little better.' Problems Identified/Issues Discussed: Mr. Hennessy is doing "so-so" today but admits that his mood is better. He has recently been having dreams of cheating which are exacerbating his anxiety. He is looking forward to his discharge tomorrow and being with his . He says that his movement is worse. Depression screen revealed sleep, interest, concentration, appetite, speech and thoughts were better; and energy and guilt were about the same. He has no thoughts of suicide or homicide. Medication Change: Yes Medical Record Reviewed: Yes Mental Status Examination - Cognitive Function Orientation: Person, Place, Situation, Time Memory: Intact Attention: WNL Concentration: Poor Association: WNL Fund of Knowledge: WNL - Mood Mood: Depressed, Anxious - Affect Affect: Constricted, Depressed - Speech Speech: Soft - Formal Thought Process Formal Thought Process: No Impairment - Suicidal Ideation Suicidal Ideation: No - Homicidal Ideation Homicidal Ideation: No Goal/Treatment Plan - Goal/Treatment Plan Need for Continued Stay: Severe depression anxiety, Discharge may exacerbated symptoms Progress Toward Problem(s) and Goals/Treatment Plan: Bipolar disorder depressed severe with psychotic features Alcohol use disorder severe Parkinsons disease HTN DM h/o Stroke Dementia Hypercholestrolimia CBT Psychoeducation Supportive therapy, group therapy, individual therapy Paxil 40 mg Trazodone 50 mg by mouth daily at bedtime Keppra 250mg BID Abilify 10 mg ASA 81 mg Donepezil 5 mg Finasteride 5mg Carbidopa/Levodopa 1 tab BID Flomax 0.4mg Metoprolol 100 mg Metformin 500 mg BID Glyburide 5 mg Gabapentin 100 mg PO TID Estimated Date of D/C: 01/31/18
[2018-02-05 10:10] VITALS: TEMP 97.7
[2018-02-06 09:21] VITALS: BP 123/78; PULSE 62
[2018-02-06] MEDS: Metoprolol Succinate 100 mg XL Tab PO SCH (10:11)
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
== END 2018-02-06 12:24 | disposition home or self-care (01) | DRG 885 ==
LOC: C.ER 13:18 → C.5E 15:43
PROVIDERS: ADMIT Psychiatry & Neurology Psychiatry; ATTEND Psychiatry & Neurology Psychiatry
PROC: GZHZZZZ Group Psychotherapy (ICD-10-PCS; principal; 2018-01-24)
PROC: GZ56ZZZ Individual Psychotherapy, Supportive (ICD-10-PCS; 2018-01-24)
DX: F31.5 Bipolar disorder, current episode depressed, severe, with psychotic features (principal); R45.851 Suicidal ideations; F41.9 Anxiety disorder, unspecified; G20 Parkinson's disease; I10 Essential (primary) hypertension; F03.90 Unspecified dementia, unspecified severity, without behavioral disturbance, psychotic disturbance, mood disturbance, and anxiety; E78.5 Hyperlipidemia, unspecified; E11.9 Type 2 diabetes mellitus without complications; K59.00 Constipation, unspecified; Z79.84 Long term (current) use of oral hypoglycemic drugs; Z86.73 Personal history of transient ischemic attack (TIA), and cerebral infarction without residual deficits; Z87.891 Personal history of nicotine dependence; F10.10 Alcohol abuse, uncomplicated; Y90.3 Blood alcohol level of 60-79 mg/100 ml